=== PATIENT | female | born 1940 | race Caucasian/White ===

== ENCOUNTER 2018-04-11 21:13 | Inpatient (IN) | payer MEDICARE, OTHER ==
[~2018-04-11] VITALS: Ht 162.6 cm; Wt 54.9 kg
--- NOTE | 2018-04-11 21:34 | NUR ---
PT TO ER BED 1. BIBPA FROM [facility] C/O LL LEG SWELLING, TRANSFERRED FOR R/O DVT. PT PLACED IN GOWN AND ON PRESS HELPER. VSS/RESP EVEN UNLABORED/NAD NOTED/SKIN WARM AND DRY/AFEBRILE/DENIES N-V-D/AOX3. AWAITNG MD GOLDSMITH.
--- NOTE | 2018-04-11 21:40 | NUR ---
FIXTURE RELAMPER AT BEDSIDE FOR EVAL.
--- NOTE | 2018-04-11 22:11 | NUR ---
PT REFUSING ANY TREATMENT AT THIS TIME, FOOD PROCESSING PLANT MANAGER MADE AWARE.
[2018-04-11] MEDS ORDERED: ATOR20TA PO (22:22)
[2018-04-11] MEDS ORDERED: DEXT15DR6 EACHEYE (22:22)
[2018-04-11] MEDS ORDERED: GABA300C PO (22:22)
[2018-04-11] MEDS ORDERED: BENZ1TAB7 PO (22:22)
[2018-04-11] MEDS ORDERED: ENOXAPARIN SODIUM 40 MG/0.4 ML DISP.SYRIN SQ ONE (22:30)
--- NOTE | 2018-04-11 22:33 | NUR ---
PATIENT REFUSED LOVENOX INJECTION, MADE AWARE. NO NEW ORDERS RECEIVED.
--- NOTE | 2018-04-11 23:03 | NUR ---
REPORT GIVEN TO SIMBA DAVENPORT FOR PATTI. PT TBA [facility].
[2018-04-12] MEDS ORDERED: MAGNESIUM HYDROXIDE 30 ML UDC PO PRN
[2018-04-12] MEDS ORDERED: ACETAMINOPHEN 325 MG TABLET PO PRN
[2018-04-12] MEDS ORDERED: ENOXAPARIN SODIUM 80 MG/0.8 ML DISP.SYRIN SQ ONE
[2018-04-12] MEDS ORDERED: TRAMADOL HCL 50 MG TABLET PO PRN
[2018-04-12] MEDS ORDERED: ONDANSETRON HCL/PF 4 MG/2 ML VIAL IVP PRN
--- NOTE | 2018-04-12 00:18 | NUR ---
PATIENT REFUSED VENOUS DUPLEX, MADE AWARE. NO NEW ORDERS RECIEVED.
--- NOTE | 2018-04-12 00:26 | NUR ---
PT TRANSPORTED VIA STRET[facility] TO [facility] WITH EMT. MILY.
--- NOTE | 2018-04-12 00:30 | NUR ---
MS RN NOTE RECEIVED PATIENT FROM ER VIA [facility] FOR ADMISSION. PATIENT IS ALERT AND ORIENTEDX2-3, HX OF PSYCHOSIS, BIPOLAR, SCHIZO. PT IS AMBULATORY WITH ASSIST, NO S/S OF RESPIRATORY DISTRESS AND COMPLAINS OF MILD PAIN ON HER LEFT LEG. PATIENT WAS POSITIVE DVT ON LEFT LEG FROM SNF PAPER, LLE SWELLING NOTED WELL, BUT SHE HAS BEEN REFUSING TO GET LOVENOX SQ, HAVE CHEST X-RAY, EKG, LAB DRAWS AND VENOUS DUPLEX DONE AT ER, VERY NON-COMPLIANT WITH MEDICAL CARE. NO IV LINE IS PRESENT ALSO SINCE PT REFUSED. DR CERVANTES IS AWARE OF IT. SKIN IS INTACT, NO S/S OF BLEEDING PRESENT AT THIS TIME. SRX2, BED IN LOW POSITION, CALL LIGHT WITHIN REACH, WILL CONTINUE TO MONITOR PATIENT.
[2018-04-12 00:45] VITALS: BP 120/70
[2018-04-12] MEDS ORDERED: RIVAROXABAN 10 MG TABLET PO STA (00:47)
--- NOTE | 2018-04-12 01:15 | NUR ---
MS RN NOTE DR. CERVANTES SAW THE PATIENT. PT REFUSED INITIAL LOVENOX 70MG SQ AGAIN, RISKS AND BENEFITS EXPLAINED MULTIPLE TIME, BUT PT INSISTED THAT 'NO SHOT ON MY BELLY'. DR. CERVANTES CHANGED THE LOVENOX ORDER TO XARELTO 15MG PO ONCE NOW, AND CONTINUE XARELTO 15MG BID PO PER [facility]S RECOMMENDATION. BUT [facility] SAID SINCE THERE'S NO LAB RESULTS AVAILABLE SHE CAN'T VERIFY THE BID ORDER TO CONTINUE, PUT ON PENDING FOR NOW.
[2018-04-12] MEDS: ZOLPIDEM TARTRATE 5 MG TABLET PO PRN ×2 (01:16→21:24)
--- NOTE | 2018-04-12 01:20 | NUR ---
MS RN NOTE PATIENT REQUESTED SLEEP MED, AMBIEN 5MG PO GIVEN ALONG WITH XARELTO 15MG PO. WILL CONTINUE TO MONITOR EFFECTIVENESS.
[2018-04-12] MEDS ORDERED: RIVAROXABAN 15 MG TABLET PO ONE ×2 (01:30)
[2018-04-12] MEDS ORDERED: RIVAROXABAN 15 MG TABLET PO SCH (01:30)
--- NOTE | 2018-04-12 05:55 | NUR ---
MS RN NOTE CHARTERED ACCOUNTANT WAS ABLE TO DO BLOOD DRAW. ASKED PT IF I CAN INSERT THE IV LINE ON HER, BUT PT STILL SAID NO.
--- NOTE | 2018-04-12 06:23 | NUR ---
MS RN NOTE PATIENT IS RESTING IN BED COMFORTABLY, NO S/S OF RESPIRATORY DISTRESS AND DENIES PAIN AT THIS TIME. MORNING CARE RENDERED ALSO. WILL ENDORSE TO DAY SHIFT NURSE FOR PATTI.
--- NOTE | 2018-04-12 07:26 | NUR ---
MS RN OPENING NOTES RECEIVED PT LAYING IN BED, SLEEPING COMFORTABLY. PT IS RESPONSIVE AND EASILY AROUSABLE, AFEBRILE. RESPIRATIONS ARE EVEN AND UNLABORED, NOT IN ANY ACUTE DISTRESS NOTED. NO IV ACCESS NOTED. PT STATED "I JUST WANT TO SLEEP." SAFETY MEASURES ARE IN PLACE. INSTRUCTED PT TO USE CALL LIGHT WHEN ASSISTANCE IS NEEDED, CALL LIGHT IS LEFT WITHIN REACH. WILL CONTINUE TO MONITOR THROUGHOUT SHIFT FOR CONTINUITY OF CARE.
[2018-04-12 07:28] LABS: BASOPHILS % (AUTO) 0.6 % (0.0-2.0); EOSINOPHILS % (AUTO) 2.1 % (0.0-6.0); HEMATOCRIT 36 % (33-45); HEMOGLOBIN 11.7 g/dL (11.5-14.8); LYMPHOCYTES # (AUTO) 1.5 /CMM (0.8-4.8); LYMPHOCYTES % (AUTO) 23.8 % (20.0-44.0); MEAN CORPUSCULAR HGB CONC 33 g/dl (31.0-36.0); MEAN CORPUSCULAR VOLUME 92 fL (82-100); MONOCYTES # (AUTO) 0.5 /CMM (0.1-1.30); NEUTROPHILS # (AUTO) 3.9 /CMM (1.8-8.9); NEUTROPHILS % (AUTO) 64.5 % (43.0-81.0); PLATELET COUNT (AUTO) 268 /CMM (150-450); RDW COEFFICIENT OF VARIATION 13.1 (11.5-15.0); RED BLOOD CELL COUNT(AUTO) 3.92 MIL/uL (4.0-5.2); WHITE BLOOD COUNT (AUTO) 6.1 K/uL (4.3-11.0)
[2018-04-12] MEDS: PANTOPRAZOLE 40 MG TABLET.DR PO SCH (07:30)
[2018-04-12 07:41] LABS: TROPONIN I < 0.017 ng/mL (0.00-0.056)
[2018-04-12 07:49] LABS: ALANINE AMINOTRANSFERASE 11 U/L (12-78); ALBUMIN 2.7 g/dL (3.4-5.0); ALKALINE PHOSPHATASE 93 U/L (46-116); ASPARTATE AMINOTRANSFERASE 18 U/L (15-37); B-TYPE NATRIURETIC PEPTIDE 130 PG/ML (0-125); BILIRUBIN,TOTAL 0.4 mg/dL (0.2-1.0); CALCIUM, SERUM 9.2 mg/dL (8.5-10.1); CARBON DIOXIDE 26 mmol/L (21-32); CHLORIDE 105 mmol/L (98-107); CHOLESTEROL 168 mg/dL (<200); CREATININE 0.7 mg/dL (0.6-1.3); GLUCOSE 87 mg/dL (74-106); HDL CHOLESTEROL 36 mg/dL (40-60); LDL 127 mg/dL (0-99); MAGNESIUM 1.8 mg/dL (1.8-2.4); PHOSPHORUS 3.3 mg/dL (2.5-4.9); POTASSIUM 3.5 mmol/L (3.5-5.1); SODIUM SERUM 140 mmol/L (136-145); THYROID STIMULATING HORMONE 0.904 uIU/mL (0.358-3.74); TOTAL PROTEIN, SERUM 5.7 g/dL (6.4-8.2); TRIGLYCERIDES 100 mg/dL (30-150); UREA NITROGEN, BLOOD 12 mg/dL (7-18)
[2018-04-12 08:00] VITALS: BP 101/59
[2018-04-12] MEDS: RIVAROXABAN 15 MG TABLET PO SCH ×2 (08:59→17:52)
[2018-04-12] MEDS: BENZTROPINE MESYLATE (1 MG) 1 MG TABLET PO SCH ×2 (09:00→17:00)
[2018-04-12] MEDS: GABAPENTIN 300 MG CAPSULE PO SCH ×3 (09:00→17:00)
[2018-04-12] MEDS: POLYVINYL ALCOHOL 15 ML BOTTLE EACHEYE SCH ×2 (09:00→21:00)
--- NOTE | 2018-04-12 09:00 | NUR ---
PT NOTED WITH NONCOMPLIANCE M/B REFUSAL TO TAKE PROTONIX, COGENTIN, GABAPENTIN AND EYE DROPS. EXPLAINED THE RISKS AND BENEFITS X3, PT STILL NOTED WITH REFUSAL. HONORED PT'S DIGNITY AND THE RIGHT TO REFUSE. WILL CONTINUE TO MONITOR.
--- NOTE | 2018-04-12 12:57 | NUR ---
PT REFUSED GABAPENTIN. EXPLAINED THE RISKS AND BENEFITS, PT STILL NOTED WITH NONCOMPLIANCE. WILL CONTINUE TO MONITOR.
[2018-04-12 16:00] VITALS: BP 98/62
[2018-04-12] MEDS ORDERED: RIVAROXABAN 10 MG TABLET PO SCH (17:00)
--- NOTE | 2018-04-12 17:58 | NUR ---
Patient resides at [facility] [phone]. She ambulates with assistive device and requires min-mod assist with adl's.Current dc plan is to return to SNF once discharge. Addendum: 04/12/18 at 1758 by BERE BANKS RN Amended: Links added.
--- NOTE | 2018-04-12 18:20 | NUR ---
PT REFUSED GABAPENTIN AND COGENTIN. EXPLAINED THE RISKS AND BENEFITS, STILL NOTED WITH NONCOMPLIANCE. WILL CONTINUE TO MONITOR.
--- NOTE | 2018-04-12 18:25 | NUR ---
MS RN CLOSING NOTES NEEDS MET AND RENDERED. PT REMAINS A/O X3, AFEBRILE. RESPIRATIONS ARE EVEN AND UNLABORED, NOT IN ANY ACUTE DISTRESS NOTED. NO C/O SOB, N/V. PT CONTINUES TO REFUSE INSERTION OF PERIPHERAL IV. SAFETY MEASURES ARE IN PLACE. REMINDED PT TO USE CALL LIGHT WHEN ASSISTANCE IS NEEDED, CALL LIGHT IS LEFT WITHIN REACH.
--- NOTE | 2018-04-12 19:25 | NUR ---
MS RN NOTE RECEIVED PATIENT FROM DAY SHIFT, PATIENT IS ALERT AND ORIENTEDX3, DENIES RESPIRATORY DISTRESS OR PAIN AT THIS TIME. LLE SWELLING NOTED DUE TO DVT. NO IV ACCESS NOTED SINCE PATIENT REFUSED, STILL NON-COMPLIANT WITH HER MEDICATIONS. SRX2, BED IN LOW POSITION, CALL LIGHT WITHIN REACH, WILL CONTINUE TO MONITOR PATIENT.
[2018-04-12 20:00] VITALS: BP 94/62
[2018-04-12] MEDS ORDERED: ATORVASTATIN 10 MG TABLET PO SCH (22:00)
[2018-04-12] MEDS ORDERED: DOCUSATE SODIUM LIQ 100 MG/10 ML UDC NG SCH (22:00)
[2018-04-12] MEDS ORDERED: LORAZEPAM 0.5 MG TABLET PO PRN (22:30)
--- NOTE | 2018-04-12 22:35 | NUR ---
MS RN NOTE PATIENT STATED THAT I FEEL ANXIOUS, I WANT TO TAKE ATIVAN. CONTACTED ONCALL DUKE SARAVIA AND GOT AN ORDER OF ATIVAN 0.5MG PO Q8H FOR ANXIETY. ORDERS PUT IN AND WILL CARRY OUT.
--- NOTE | 2018-04-13 06:25 | NUR ---
MS RN NOTE PATIENT IS RESTING IN BED COMFORTABLY, NO S/S OF RESPIRATORY DISTRESS AND NO FACIAL GRIMACE NOTED. MORNING CARE RENDERED ALSO. WILL ENDORSE TO DAY SHIFT NURSE FOR PATTI.
[2018-04-13] MEDS: PANTOPRAZOLE 40 MG TABLET.DR PO SCH (07:30)
--- NOTE | 2018-04-13 07:31 | NUR ---
MS RN OPENING NOTES RECEIVED PT LAYING IN BED, SLEEPING COMFORTABLY. PT IS RESPONSIVE AND EASILY AROUSABLE, AFEBRILE. RESPIRATIONS ARE EVEN AND UNLABORED, NOT IN ANY ACUTE DISTRESS NOTED. NO IV ACCESS NOTED. SAFETY MEASURES ARE IN PLACE. INSTRUCTED PT TO USE CALL LIGHT WHEN ASSISTANCE IS NEEDED, CALL LIGHT IS LEFT WITHIN REACH. WILL CONTINUE TO MONITOR THROUGHOUT SHIFT FOR CONTINUITY OF CARE.
[2018-04-13 08:00] VITALS: BP_SYST 117; BP_SYST 140; BP_DIAS 57; BP_DIAS 62
[2018-04-13] MEDS: POLYVINYL ALCOHOL 15 ML BOTTLE EACHEYE SCH (09:00)
[2018-04-13] MEDS: BENZTROPINE MESYLATE (1 MG) 1 MG TABLET PO SCH ×2 (09:00→16:08)
[2018-04-13] MEDS: GABAPENTIN 300 MG CAPSULE PO SCH ×3 (09:00→16:08)
[2018-04-13] MEDS: RIVAROXABAN 15 MG TABLET PO SCH ×2 (09:03→16:23)
[2018-04-13] MEDS ORDERED: Rivaroxaban PO (10:18)
--- NOTE | 2018-04-13 13:02 | NUR ---
PT REFUSED GABAPENTIN. EXPLAINED THE RISKS AND BENEFITS, PT STILL NOTED WITH NONCOMPLIANCE. WILL CONTINUE TO MONITOR.
[2018-04-13] MEDS ORDERED: MINERAL OIL 133 ML (PYXIS) 1 EA ENEMA RC ONE (15:30)
--- NOTE | 2018-04-13 16:22 | NUR ---
PT COMPLIANT WITH AFTERNOON MEDICATIONS.
--- NOTE | 2018-04-13 16:22 | NUR ---
MS FINAL FINISHER FORGING DIES NOTE PT DISCHARGED TO [facility] VIA [facility] ACCOMPANIED BY EMT PERSONNEL. PT REMAINS A/O X3-4, AFEBRILE. RESPIRATIONS ARE EVEN AND UNLABORED, NOT IN ANY ACUTE DISTRESS NOTED. PT DENIES ANY PAIN AT THIS TIME, NO C/O SOB, N/V. ADMINISTERED AFTERNOON MEDS WITH FLEET ENEMA PER PT REQUEST AND OKAY FROM DR. PHILIPPE. EXPLAINED DISCHARGE PAPERWORK TO PT AND SON LEONARDO WITH VERBAL AND WRITTEN AGREEMENT. NO IV ACCESS NOTED. NO SKIN ISSUES NOTED. ALL BELONGINGS TAKEN WITH PT. PT LEFT IN STABLE CONDITION.
== END 2018-04-13 17:58 | DRG 300 ==
LOC: ER 21:14 → MEDSG2 22:52
PROVIDERS: ADMIT Internal Medicine; ATTEND Internal Medicine
DX: I82.412 Acute embolism and thrombosis of left femoral vein (principal); D68.59 Other primary thrombophilia; E44.0 Moderate protein-calorie malnutrition; I82.432 Acute embolism and thrombosis of left popliteal vein; G20 Parkinson's disease; E78.5 Hyperlipidemia, unspecified; F25.9 Schizoaffective disorder, unspecified; F31.9 Bipolar disorder, unspecified; R73.9 Hyperglycemia, unspecified; Z68.20 Body mass index [BMI] 20.0-20.9, adult
CPT/HCPCS: 36415; 80053-TC; 80061-TC; 83735-TC; 83880; 84100-TC; 84443-TC; 84484-TC; 85025-TC; 87081-TC; 93971-TC; A4606; Z7610